=== PATIENT | female | born 1990 | race Caucasian/White ===

== ENCOUNTER 2023-12-21 16:53 | Inpatient (IN) | payer OTHER, SELFPAY ==
[2023-12-21 11:59] VITALS: BP 129/94
[2023-12-21 12:22] LABS: Urine Albumin Negative (Neg - Trace); Urine Bilirubin Negative (Negative); Urine Character Clear (Clear); Urine Color Yellow; Urine Glucose Negative (Negative); Urine Ketone Negative (Negative); Urine Leukocyte Negative (Negative); Urine Nitrite Negative (Negative); Urine Occult Blood Negative (Negative); Urine Urobilinogen Negative (Neg - 1+)
[2023-12-21 12:30] LABS: % Basophils 0.3 % (0-2); % Eosinophils 0.5 % (0-6); % Immature Granulocytes 0.3 % (0-0.5); % Lymphocytes 18.1 % (20.5-51.1); % Monocytes 7.5 % (1.7-9.3); % Neutrophils 73.3 % (42.2-75.2); Absolute Lymphocytes 1.4 10^3/uL (1.2-3.4); Absolute Monocytes 0.6 10^3/uL (0.1-0.6); Absolute Neutrophils 5.8 10^3/uL (1.4-6.5); Hematocrit 37.2 % (37.0-47.0); Hemoglobin 12.7 g/dL (12.0-16.0); Mean Corp Hgb Conc. 34.1 g/dL (33.0-37.0); Mean Corpuscular Hgb 28.2 pg (27.0-31.0); Mean Corpuscular Volume 82.5 fL (81.0-99.0); Mean Platelet Volume 11.9 fL (7.4-10.4); Nucleated Red Blood Cells % 0 %; Platelet Count 257 10^3/uL (130-400); Red Blood Cell Count 4.51 10^6/uL (4.20-5.40); Red Cell Dist. Width 13.8 % (11.5-14.5)
[2023-12-21 12:31] LABS: HCG, Serum Qualitative Screen Negative
[2023-12-21 12:40] LABS: Albumin 4.4 g/dl (3.5-5.0); Alkaline Phosphatase 105 U/L (38-126); Blood Urea Nitrogen 10 mg/dl (7-17); Calcium 9.9 mg/dl (8.4-10.2); Carbon Dioxide 27 mmol/L (22-30); Chloride 103 mmol/L (98-107); Glucose 98 mg/dl (70-99); Lipase 151 U/L (23-300); Potassium 4.3 mmol/L (3.5-5.1); Sodium 134 mmol/L (135-145); Total Bilirubin 3.1 mg/dl (0.2-1.3); eGFR > 60.00
[2023-12-21 12:59] LABS: ALT (SGPT) 986 U/L (0-35); AST (SGOT) 821 U/L (14-36)
--- NOTE | 2023-12-21 13:44 | ED.GENMED ---
History of Present Illness
General
Chief Complaint: Abdominal Symptoms
Source: patient
Exam Limitations: none
Time Seen by Provider: 12/21/23 13:34
Travel History
Have you had any contact with someone who has COVID-19?: No
Do you have any symptoms of coronavirus? Fever > 100 degrees, chills, cough, shortness of breath, sore throat, loss of taste or smell, muscle aches, or headache?: No
History of Present Illness
History of Present Illness:
See MDM
Past History
Past History
ED Past Medical History: None
ED Past Surgical History: None
Social History
Tobacco: Non-smoker
Alcohol: None
Phy Exam
Physical Exam
Physical Exam:
See MDM
Course
Orders/Labs/Results
Orders:
Orders
12/21/23 12:03
Test Result ONCE
12/21/23 12:07
Complete Blood Count/With Diff Urgent
Comprehensive Metabolic Panel Urgent
Direct Bilirubin Urgent
HCG, Serum Qualitative Screen Urgent
Lipase Urgent
Urinalysis Reflex To Culture Urgent
Date Specimen was Collected: 12/21/23
Time Specimen was Collected: 12:03
12/21/23 13:43
Ketorolac [Toradol] 15 mg IV NOW STA
US Abdomen Complete/Upper Urgent
Comment:
Reason For Exam: RUQ pain
12/21/23 13:54
PTT Urgent
Prothrombin Time Urgent
12/21/23 16:05
Add On- LAB Urgent
Tests Added?: Direct bilirubin
12/21/23 16:11
Admit/Transfer Patient As Directed
Co-Sign Provider:
Level of Care: Inpatient admission
Assign to:: Medical/Surgical
Physician / Group: Niko
Diagnosis: Choledocholithiasis
Reason for Hospitalization: see progress note
Expected length of stay greater than two midnights?: Yes
ELOS- Estimated Length of Stay in days: 3
I certify the patient meets the requirements for IP care: Yes
12/21/23 16:12
Code Status As Directed
Resuscitation Status: Full Code
Abnormal Lab Results
12/21/23 12/21/23
12:07 13:54
MPV 11.9 H fL
(7.4-10.4)
Lymphocytes % 18.1 L %
(20.5-51.1)
PT 15.0 H Sec
(11.4-14.6)
Sodium 134 L mmol/L
(135-145)
Total Bilirubin 3.1 H mg/dl
(0.2-1.3)
AST 821 H* U/L
(14-36)
ALT 986 H* U/L
(0-35)
12/21/23 12:07
12/21/23 12:07
Vital Signs
Initial and Last Documented VS:
Initial Vital Signs
Temp Pulse Resp BP Pulse Ox
98.7 F 82 16 129/94 98
12/21/23 11:59 12/21/23 11:59 12/21/23 11:59 12/21/23 11:59 12/21/23 11:59
Last Documented Vital Signs
Temp Pulse Resp BP Pulse Ox
98.7 F 86 16 121/91 96
12/21/23 11:59 12/21/23 16:19 12/21/23 13:55 12/21/23 13:55 12/21/23 16:19
MDM/Problems Addressed
Differential Diagnosis Includes:
HPI and MDM Narrative:
33-year-old female presenting with right upper quadrant abdominal pain. She did notice the symptoms yesterday. It was few hours after eating. Patient is actually nervous to eat because she thinks symptoms are worse after she eats.
On exam, patient has very mild right upper quadrant tenderness. She is feeling better. Blood work was obtained prior to my evaluation showing significant transaminitis. Given the elevated bilirubin and the transaminitis, we discussed possible
common bile duct stone. Will obtain ultrasound and discusse case with GI
Physical exam
General: Well appearing and non-toxic
HEENT: protecting airway
Neck: appears supple
CV: No evidence of cyanosis
Resp: No accessory muscle use
Abd: Non-distended. Mild right upper quadrant tenderness
Extremities: No deformities
Neuro: alert
Psych: Normal affect
Skin: Intact
Problems Addressed including Acute and Chronic Conditions affecting care:
1. Transaminitis
Acuity: acute
Prognosis: stable
Details: Given history, will obtain ultrasound to rule out concerns for common bile duct stone
Updates
Right upper quadrant ultrasound shows gallstones but no infectious etiology. Case discussed with GI. Will admit for MRCP
Differential Diagnosis (but not limited to): Common bile duct stone, cholecystitis
Testing considered: CT abdomen/pelvis
Drug therapy (if applicable): OTC meds, please see d/c instruction regarding Rx drugs
Amount and/or Complexity of Data Reviewed
Clinical info obtained from: Patient
External data reviewed: N/A
Labs I independently reviewed (but not limited to): Transaminitis
Radiology: Ultrasound report reviewed
Pulse Ox: not hypoxic
EKG independently reviewed: N/A
Preschool Substitute Teacher: N/A
Critical Care: N/A
Risk of Complication:
Social Determinants of health: Good social support
Discussed with other providers: Gastroenterology
Escalation of Care includes Admit/Obs: Given the significant transaminitis, will admit
Occasional wrong word or 'sound a like' substitutions may have occurred due to the inherent limitations of voice recognition software. Read the chart carefully and recognize, using context, where substitutions have occurred.
*Critical Care Note
Total Time (30-74mins, 75-104mins- exclusive of procedures): Not Applicable
ED Attending Note
-
Portions of this chart may have been created with voice recognition software.� Occasional wrong word or��sound alike� substitutions may have occurred due to the inherent limitations of voice recognition software.
Discharge Plan
Departure
Patient Disposition: Admit
Date of Disposition: 12/21/23
Time of Disposition: 16:24
Admit to: Med/Surg
Presentation/result/management discussed w/ accepting MD/DO: Hospitalist
Discharge Problem:
Transaminitis
Prescriptions:
No Action
pantoprazole [Protonix] 40 mg Tablet,Delayed Release (Dr/Ec)
40 mg PO DAILYPRN PRN (Reason: gerd)
Referrals:
Destiny Ortiz PA-C [Family Provider] -
Interventions
Interventions:
*Risk Screen - Suicide Last Done: 12/21/23 13:54
*General Assessment Last Done: 12/21/23 13:54
*Neglect/Abuse Screening Last Done: 12/21/23 13:54
*ED COVID-19 Vaccine History Last Done: 12/21/23 11:59
UJ-Nqyfcm-Jonbkxgour Assessment Last Done: 12/21/23 13:54
Discharge Date and Time
Print Language: ALBANIAN
[2023-12-21 13:49] VITALS: BMI 29.3
[2023-12-21 13:55] VITALS: BP 121/91
[2023-12-21 14:24] LABS: INR 1.19
[2023-12-21 14:25] LABS: APTT 25.4 Sec (23.4-35.0)
--- NOTE | 2023-12-21 16:17 | HPS.HSE ---
Family Physician
-
Family Physician: Destiny Ortiz
Chief Complaint
-
Abdominal pain
History of Present Illness
Presents with acute onset of abdominal pain with associated nausea and vomiting. Started yesterday at 5:30 PM. It sort of self down but she was not comfortable in her abdomen after that.
This morning she had another attack which is as intense as yesterday. She went to work and was not comfortable in her belly because she was getting twinges of pain in between.
Abdominal pain is in the center some times radiates to both the sides and to the back.
No fever or chills.
She remembers similar attack in April 2022 when she thought she was having a heart attack ,it all subsided spontaneously. Thinking back she states she had 5 similar kind of attacks of abdominal pain. Never was diagnosed with cholelithiasis.
She did visit GI physician who did an endoscopy and was noted to have hiatus hernia and takes as needed Protonix.
Medical History
Past Medical History
Past Medical History: Reports None
Past Surgical History: Reports None
Social History
Tobacco: Non-smoker
Alcohol: None
Living: With Family
Family History
Family History: Not pertinent
Allergies / Home Medications
Allergies reflects when Allergies were last updated in [facility].
Home Medications with original date entered in [facility]
Allergy/Medication List:
Allergies
Allergy/AdvReac Type Severity Reaction Status Date / Time
amoxicillin Allergy Rash Verified 12/21/23 12:02
clindamycin Allergy Hives Verified 12/21/23 12:02
Home Medications
pantoprazole 40 mg tablet,delayed release (Protonix) 40 mg PO DAILYPRN PRN gerd 12/21/23
Review of Systems
-
A 12 point ROS was completed and negative except as noted: Yes
Physical Exam
Vital Signs
Vital Signs
Temp Pulse Resp BP Pulse Ox
98.7 F 80 16 121/91 97
12/21/23 11:59 12/21/23 13:55 12/21/23 13:55 12/21/23 13:55 12/21/23 13:55
Physical Exam
General: No Apparent Distress
HEENT: Moist mucous membranes
Respiratory: Clear
Cardiac: S1/S2 and Regular Rhythm
GI: Soft, Non Tender, Non Distended and Normal Bowel Sounds
Neuro: AO x 3
Psych: Calm
Laboratory Results
-
12/21/23 12:07
12/21/23 12:07
Laboratory Results
PT 15.0 Sec (11.4-14.6) H 12/21/23 13:54
INR 1.19 12/21/23 13:54
APTT 25.4 Sec (23.4-35.0) 12/21/23 13:54
Total Bilirubin 3.1 mg/dl (0.2-1.3) H 12/21/23 12:07
AST 821 U/L (14-36) H* 12/21/23 12:07
ALT 986 U/L (0-35) H* 12/21/23 12:07
Alkaline Phosphatase 105 U/L (38-126) 12/21/23 12:07
Lipase 151 U/L (23-300) 12/21/23 12:07
Data Reviewed
-
Ultrasound: Report Reviewed by me (US abdomen)
Lab Data: Labs Reviewed by me
Impression/Plan
-
Acute biliary colic
Cholestatic hepatitis picture
Cholelithiasis
History of prior biliary colic
Admit to hospital.
Ultrasound shows cholelithiasis and a normal CBD. In view of cholestatic hepatitis picture will obtain MRCP. Consult GI. Keep on clears. Repeat LFTs in AM.
Would need surgical eval for cholecystectomy eventually.
[2023-12-21 16:40] LABS: Direct Bilirubin 1.7 mg/dl (0.0-0.4)
--- NOTE | 2023-12-21 17:29 | CON.GI ---
Consultation
-
Date/Time Consultation Requested: 12/21/2023, 16:24
Date/Time Consultation Performed: 12/21/2023 6pm
Requesting Provider: Dr. García
Performing Provider: Dr. Loredo
Reason for Consultation: abnormal lfts
Medical History
Chief Complaint / HPI
Chief Complaint: abd pain
History of Present Illness:
33 yo F no sig pmh here with abd pain with n/v.She has history of similar abdominal pains in April. She met with Dr. Tarango who did an upper endoscopy had a hiatal hernia and this was thought to be the cause of her pain and she was placed on a
PPI. Ultrasound was previously ordered but never performed. She had no further episodes since then. However, yesterday at 5:30 PM after eating a Mediterranean bowl she had a severe episode with nausea and vomiting. She was uncomfortable all
night. She was woken up with the pain as well. She does states she has a family history of gallbladder disease on her maternal side.
Pain has now since resolved and she wants to go home.
Labs significant for white blood cell count 8, hemoglobin 12.7, bilirubin 3.1 with direct bilirubin of 1.7, AST 821, ALT 96, lipase 151. Ultrasound with gallstones with no findings of acute cholecystitis. Recommend clinical correlation.
Past Medical History
Past Medical History: None
Past Surgical History: None and
Social History
Tobacco: Non-Smoker
Alcohol: Occasional (rare)
Drug: Marijuana (rare)
Family History
Family History: Other (mom grandma great grandma all maternal with biliary dz)
Allergies / Home Medications
Allergy/AdvReac Type Severity Reaction Status Date / Time
amoxicillin Allergy Rash Verified 12/21/23 12:02
clindamycin Allergy Hives Verified 12/21/23 12:02
�Medication �Instructions �Recorded
pantoprazole 40 mg tablet,delayed 40 mg PO DAILYPRN PRN gerd 12/21/23
release (Protonix)
Review of Systems
-
All other systems: A 12 pt ROS was Negative except as stated above in HPI
Vital Signs
Temp Pulse Resp BP Pulse Ox
98.7 F 86 16 121/91 96
12/21/23 11:59 12/21/23 16:19 12/21/23 13:55 12/21/23 13:55 12/21/23 16:19
Physical Exam
Exam
General: Well Developed
HEENT: Normocephalic
Respiratory: Clear
Cardiac: S1/S2
GI: Non Tender and Non Distended
Musculoskeletal: No Clubbing
Skin: Warm
Neuro: AO x 3
Psych: Calm
Results
WBC 8.0 10^3/uL (4.8-10.8) 12/21/23 12:07
Hgb 12.7 g/dL (12.0-16.0) 12/21/23 12:07
Hct 37.2 % (37.0-47.0) 12/21/23 12:07
MCV 82.5 fL (81.0-99.0) 12/21/23 12:07
Plt Count 257 10^3/uL (130-400) 12/21/23 12:07
Absolute Neuts (auto) 5.8 10^3/uL (1.4-6.5) 12/21/23 12:07
PT 15.0 Sec (11.4-14.6) H 12/21/23 13:54
INR 1.19 12/21/23 13:54
APTT 25.4 Sec (23.4-35.0) 12/21/23 13:54
Sodium 134 mmol/L (135-145) L 12/21/23 12:07
Potassium 4.3 mmol/L (3.5-5.1) 12/21/23 12:07
Chloride 103 mmol/L (98-107) 12/21/23 12:07
Carbon Dioxide 27 mmol/L (22-30) 12/21/23 12:07
BUN 10 mg/dl (7-17) 12/21/23 12:07
Creatinine 0.7 mg/dL (0.6-1.0) 12/21/23 12:07
Calcium 9.9 mg/dl (8.4-10.2) 12/21/23 12:07
Total Bilirubin 3.1 mg/dl (0.2-1.3) H 12/21/23 12:07
AST 821 U/L (14-36) H* 12/21/23 12:07
ALT 986 U/L (0-35) H* 12/21/23 12:07
Alkaline Phosphatase 105 U/L (38-126) 12/21/23 12:07
Lipase 151 U/L (23-300) 12/21/23 12:07
Diagnostic Image Results:
Prior GI Procedures:
EGD:
Colonoscopy:
Assessment / Plan
-
33 yo F no pmh here with abd pain, n/v here with elevated lfts, gallstones on US suspect biliary colic may also have choledocho vs passed stone with elevated bili.
Plan MRI/MRCP d/w ER. I called MRI will not be done tonight so will do clear liquid diet and NPO after midnight.
Eventual CCY recommend surgery consult. D/w Dr. Pope defer to surgery inpatient vs outpatient.
Trend labs.
Discussed with patient possible need for ERCP as well as what the procedure entails. Risk, alternatives, benefits of ERCP explained including risk of cholangitis if not removed. Discussed risk of procedure including but not limited to bleeding,
infection, perforation, pancreatitis.
D/w ER attg and hospitalist.
Updated outpatient GI.
-
-
Thank you for consultation and allowing me to participate in the patient's care. Please call the environmental issues instructor GI physician during the after hours with any questions or concerns.
[2023-12-21 17:54] VITALS: BP 116/80; BMI 28.1
[2023-12-21] MEDS: ATARAX 10 MG PO (22:33)
[2023-12-21] MEDS: TUMS 1 TABLET PO (23:03)
[2023-12-21 23:10] VITALS: BP 103/62
[2023-12-22 06:59] LABS: % Basophils 0.4 % (0-2); % Eosinophils 3.1 % (0-6); % Immature Granulocytes 0.4 % (0-0.5); % Monocytes 9.6 % (1.7-9.3); % Neutrophils 56.5 % (42.2-75.2); Absolute Eosinophils 0.2 10^3/uL (0-0.7); Absolute Lymphocytes 2.3 10^3/uL (1.2-3.4); Absolute Monocytes 0.7 10^3/uL (0.1-0.6); Absolute Neutrophils 4.3 10^3/uL (1.4-6.5); Hematocrit 37.5 % (37.0-47.0); Hemoglobin 12.6 g/dL (12.0-16.0); Mean Corp Hgb Conc. 33.6 g/dL (33.0-37.0); Mean Corpuscular Hgb 28.4 pg (27.0-31.0); Mean Corpuscular Volume 84.5 fL (81.0-99.0); Mean Platelet Volume 11.9 fL (7.4-10.4); Nucleated Red Blood Cells % 0 %; Platelet Count 221 10^3/uL (130-400); Red Blood Cell Count 4.44 10^6/uL (4.20-5.40); Red Cell Dist. Width 13.9 % (11.5-14.5); White Blood Cell Count 7.6 10^3/uL (4.8-10.8)
[2023-12-22 07:00] VITALS: BP 110/69
[2023-12-22 07:39] LABS: ALT (SGPT) 567 U/L (0-35); AST (SGOT) 296 U/L (14-36); Albumin 3.8 g/dl (3.5-5.0); Alkaline Phosphatase 103 U/L (38-126); Blood Urea Nitrogen 6 mg/dl (7-17); Calcium 9.5 mg/dl (8.4-10.2); Carbon Dioxide 20 mmol/L (22-30); Chloride 108 mmol/L (98-107); Direct Bilirubin 0.7 mg/dl (0.0-0.4); Estimated Creatinine Clearance 95 ml/min; Glucose 87 mg/dl (70-99); Potassium 4.6 mmol/L (3.5-5.1); Sodium 136 mmol/L (135-145); Total Bilirubin 2.2 mg/dl (0.2-1.3); Total Protein 6.4 g/dl (6.3-8.2); eGFR > 60.00
--- NOTE | 2023-12-22 09:47 | W.PN.HOSP.TC ---
Today's Communication/Plan
-
F/U patient's decision on lap becky
Assessment / Plan
Assessment / Plan
RUQ US
IMPRESSION: Gallstones. No secondary findings to suggest acute cholecystitis. Clinical and laboratory correlation recommended.
MRI
IMPRESSION:
Findings consistent with acute cholecystitis.
No bile duct dilatation. No MR evidence to suggest choledocholithiasis.
Acute biliary colic
Transaminitis
-patient's pain from passed gallstone; MRI with e/o gallbladder inflammation from passed gallstone. no signs of on-going infection - patient currently pain free on exam
-discussing with surgery timing of lap becky
-keep NPO for now
.
Anticipated Discharge: 24 - 48 hours
Subjective/Interval History
-
Date of Service: December 22, 2023
no abdominal pain now
no fevers/chills
Objective Data
-
Labs:
Laboratory Results
12/22/23
06:35
WBC 7.6
Hgb 12.6
Hct 37.5
Plt Count 221
Sodium 136
Potassium 4.6
Chloride 108 H
Carbon Dioxide 20 L
BUN 6 L
Creatinine 0.7
Glucose 87
Calcium 9.5
Total Bilirubin 2.2 H
AST 296 H
ALT 567 H*
Alkaline Phosphatase 103
Vital Signs:
Vital Signs
Temp Pulse Resp BP Pulse Ox
97.8 F 75 16 110/69 99
12/22/23 07:00 12/22/23 07:00 12/22/23 07:00 12/22/23 07:00 12/22/23 07:00
I&O
12/21/23 12/22/23 12/23/23
06:59 06:59 06:59
Intake Total 480 / 480
Balance 480 / 480
Review of Systems
-
History Source: Patient
All other systems: Reviewed and negative
Physical Exam
-
General: No Apparent Distress
HEENT: PERRLA
Respiratory: Clear to Auscultation; Negative Wheezes
Cardiac: Regular Rhythm and S1/S2
GI: Soft and Nontender
Skin: Warm and Dry; Negative Rash
Neuro: AO x 3
Psych: Calm
Data Reviewed
-
Diagnostic Radiology: Report Reviewed by me
Labs: Labs Reviewed by me
--- NOTE | 2023-12-22 11:01 | W.PN.GI.CBS2 ---
Today's Communication / Plan
-
LFTs improving. Pending surgical evaluation. No evidence of choledocholithiasis but findings of acute cholecystitis on MRI/MRCP. GI will sign off, please call with questions.
Assessment / Plan
-
33 yo F no pmhx here with abd pain, n/v found to have elevated lfts with findings of acute cholecystitis w/o evidence of cholelithiasis on MRI/MRCP. Patient with clinical improvement and marked reduction in liver enzymes. Pending surgical evaluation.
#Elevated transaminases-- >50% reduction in LFTs, suspect patient passed stone, no evidence of choledocholithiasis
-no findings of acute cholecystitis on US, interestingly, evidence of acute cholecystitis on MRI/MRCP
-clinically looks and feels well, discussed risks/benefits of surgery during admission vs. outpatient, ultimately deferring to surgical evaluation
-Surgical evaluation pending
- gallstones on US suspect biliary colic may also have choledocho vs passed stone with elevated bili.
-will arrange outpatient follow-up with GI (follows with Dr. Tarango)
-GI will sign off, please call with questions
Subjective
Subjective
Date of Service: December 22, 2023
Patient seen in follow-up today, reports feeling well, with minimal abdominal discomfort or nausea. MRI with MRCP performed this morning shows findings consistent with acute cholecystitis, with mild to moderate distention of the gallbladder with
combination biliary sludge and calculi ranging from minute size to 1.4 cm. There is associated gallbladder wall thickening with gallbladder wall measuring up to 4 mm. Trace pericholecystic fluid. No biliary ductal dilatation, no evidence to
support choledocholithiasis. 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 LFTs have improved significantly.
Objective
Data Reviewed
Laboratory Data:
Laboratory Results
12/22/23 06:35
12/22/23 06:35
Laboratory Results
PT 15.0 Sec (11.4-14.6) H 12/21/23 13:54
INR 1.19 12/21/23 13:54
APTT 25.4 Sec (23.4-35.0) 12/21/23 13:54
Total Bilirubin 2.2 mg/dl (0.2-1.3) H 12/22/23 06:35
AST 296 U/L (14-36) H 12/22/23 06:35
ALT 567 U/L (0-35) H* 12/22/23 06:35
Alkaline Phosphatase 103 U/L (38-126) 12/22/23 06:35
Lipase 151 U/L (23-300) 12/21/23 12:07
Vital Signs and I&O:
Vital Signs
Temp Pulse Resp BP Pulse Ox
97.8 F 75 16 110/69 99
12/22/23 07:00 12/22/23 07:00 12/22/23 07:00 12/22/23 07:00 12/22/23 07:00
I&O
12/21/23 12/22/23 12/23/23
06:59 06:59 06:59
Intake Total 480 / 480
Balance 480 / 480
Physical Exam
Physical Exam
GENERAL: In no acute distress, appears comfortable
HEENT: no scleral icterus, mucous membranes moist, OP clear
RESP: Nonlabored respirations, clear to ausculation, b/l
CV: RRR, S1/S2
ABDOMEN: +BS; soft, non-tender and non-distended; no rebound or guarding
EXT: No LE edema, b/l
SKIN: Dry, warm
NEURO: AAOx3
--- NOTE | 2023-12-22 12:05 | CON.GS ---
Medical History
-
Chief Complaint: Abdominal pain
History of Present Illness:
Patient is a 33 yo F with a PMH of GERD and s/p x 2 who presents with epigastric abdominal pain radiating to her back. Ms. Muir states that her symptoms began acutely on Thursday evening. Her symptoms improved allowing her to sleep but
then recurred on Thursday morning. She felt unwell unwell throughout the day on Thursday prompting presentation to the ED. She describes epigastric abdominal pain radiating to her back. Currently symptoms have significantly improved. She has had
several prior more mild attacks. She previously had an episode back in April. EGD at that time identified a hiatal hernia and her symptoms were thought to be large related to GERD. Associated nausea and vomiting on Thursday, none currently.
She reports darker urine, but denies any jaundice or pale stools.
Past Medical History
Past Medical History: None
Past Surgical History:
Social History
Tobacco: Non-Smoker
Alcohol: Occasional
Drug: Marijuana
Family History
Family History: Reviewed & Noncontributory
Allergies / Home Medications
Allergy/AdvReac Type Severity Reaction Status Date / Time
amoxicillin Allergy Rash Verified 12/21/23 12:02
clindamycin Allergy Hives Verified 12/21/23 12:02
�Medication �Instructions �Recorded �Confirmed �Type
hydroxyzine HCl 25 mg tablet 10 mg PO HS PRN sleep 12/21/23 12/21/23 History
pantoprazole 40 mg tablet,delayed 40 mg PO DAILYPRN PRN gerd 12/21/23 12/21/23 History
release (Protonix)
Review of Systems
-
A 10 point review of systems was completed, and was negative except as per HPI.
Physical Exam
Vital Signs
Temp Pulse Resp BP Pulse Ox
97.8 F 75 16 110/69 99
12/22/23 07:00 12/22/23 07:00 12/22/23 07:00 12/22/23 07:00 12/22/23 07:00
12/21/23 12/22/23 12/23/23
06:59 06:59 06:59
Actual Weight 65.181 kg
Body Mass Index (BMI) 28.1
Lab Results
12/22/23 06:35
12/22/23 06:35
WBC 7.6 10^3/uL (4.8-10.8) 12/22/23 06:35
Hgb 12.6 g/dL (12.0-16.0) 12/22/23 06:35
Hct 37.5 % (37.0-47.0) 12/22/23 06:35
Plt Count 221 10^3/uL (130-400) 12/22/23 06:35
Abs Immat Gran (auto) 0.0 10^3/uL (0-0.05) 12/22/23 06:35
Neutrophils % 56.5 % (42.2-75.2) 12/22/23 06:35
Physical Exam
General: Well Developed, Well Nourished and No Apparent Distress
HEENT: Normocephalic and Scleral Icterus
Respiratory: Non Labored Respirations
Cardiac: Regular Rhythm
GI: Soft, Non Tender, Non Distended, Incisions (Well healed) and Other (Negative Kelly's sign)
Musculoskeletal: No Edema
Skin: Warm and Dry
Neuro: Nonfocal/Grossly Intact
Data Reviewed
-
Ultrasound: Image Personally Visualized and interpreted and Report Reviewed by me
MRI: Report Reviewed by me
Labs: Labs Reviewed by me
Assessment / Plan
-
Patient is a 33 yo F p/w persistent episodes of biliary colic and current episode of choledocholithiasis.
The natural history and pathophysiology of biliary and stone disease was discussed. Anatomy was reviewed utilizing pictorial images. Workup thus far was reviewed. Likely passed stone given negative MRI and improvement in labs. The role of
cholecystectomy in preventing future episodes of biliary colic and choledocholithiasis was discussed. Ultimately, recommend cholecystectomy.
Plan for a laparoscopic cholecystectomy with possible cholangiogram. The procedure itself, as well as the risks, benefits, and alternatives was discussed. Specifically, we discussed the risks of bleeding, infection, injury to surrounding
structures (bowel, bile ducts), CBD injury, need for open procedure. Typical post procedure recovery was discussed. All questions answered.
-- Laparoscopic cholecystectomy possible IOC
-- NPO, IVF
-- Abx: Zosyn
-- Pain control: Tylenol and IV Dilaudid PRN
[2023-12-22 15:00] VITALS: BP 111/67
--- NOTE | 2023-12-22 18:03 | W.PN.SURGUPD ---
Surgical Update
Surgical Update
Patient requesting update. OR unable to give time for availability. Patient frustrated. Denies abdominal pain, nausea, or emesis. HD stable and afebrile. Discussed options. Plan for LFD tonight. Discussed that ideally recommend monitoring
overnight with repeat labs in AM. Patient requesting if possible for DC this evening; not entirely unreasonable given no clinical signs of cholecystitis (no pain and if tolerates diet) and no choledocho on imaging. Risks of recurrent pain and need
for representation were discussed. Will attempt to coordinate outpatient lap becky.
[2023-12-22 20:05] VITALS: BP 104/72
== END 2023-12-22 20:52 | disposition home or self-care (01) | DRG 446 ==
LOC: 3 WEST ACU 16:53
PROVIDERS: Emergency Medicine; ADMITTING PHYSICIAN Internal Medicine; ATTENDING PHYSICIAN Student in an Organized Health Care Education/Training Program; CONSULT PHYSICIAN Internal Medicine Gastroenterology; CONSULT PHYSICIAN Surgery; EMERGENCY PHYSICIAN Student in an Organized Health Care Education/Training Program; FAMILY PHYSICIAN Physician Assistant Medical
DX: K80.00 Calculus of gallbladder with acute cholecystitis without obstruction (principal); K75.89 Other specified inflammatory liver diseases; K21.9 Gastro-esophageal reflux disease without esophagitis
CPT/HCPCS: 74183; 76700; 80053; 81003; 82248; 83690; 84703; 85025; 85610; 85730; 99285; A9575

== ENCOUNTER 2024-02-03 06:04 | Day surgery (SDC) | payer OTHER, SELFPAY ==
[2024-02-03] VITALS (11 sets, daily range): BP systolic 92–109; BP diastolic 54–75; BMI 27.1
[2024-02-03] MEDS: TYLENOL 1000 MG PO (06:37)
[2024-02-03] MEDS: NORMOSOL-R 1000 IV (06:52)
== END 2024-02-03 12:15 | disposition home or self-care (01) ==
LOC: SDS 06:04
PROVIDERS: ATTENDING PHYSICIAN Surgery
DX: K80.10 Calculus of gallbladder with chronic cholecystitis without obstruction (principal); K66.0 Peritoneal adhesions (postprocedural) (postinfection)
CPT/HCPCS: 47563; 88304; 74300; 76000; J1335